=== PATIENT | male | born 1975 | race Caucasian/White ===

== ENCOUNTER 2020-07-16 06:56 | Outpatient (CLI) | payer BC, SELFPAY ==
[2020-07-16 07:27] VITALS: BMI 27.7
--- NOTE | 2020-07-16 07:27 | NMCV_ITS ---
NM pablo perf SPECT r/s* [id number] Neftali Thompson Age: 44 Gender: M : 1975 Exam Date: 07/16/2020 08:05 Ordering Phys: Ana Cabello APN Technologist: HITESH Mehta Exam Location: [facility] Indications: CHEST PAIN STRESS TEST Please see separate stress test report in [facility] for full findings IMAGE PROTOCOL Rest/Stress 1 Lexiscan Day Radiopharmaceutical Dose (mCi) Administration Site Administered by Rest: Tc-99m 10.8 IV HITESH Salcido Sestamibi Stress:Tc-99m 32.9 IV HITESH Salcido Sestamibi Rest: 16-Jul-2020 60 Discovery 630 Stress: 16-Jul-2020 30 Discovery 630 0.4mg Lexiscan. Images obtained in supine and prone position. SPECT RESULTS Technical Quality: Excellent Raw Data Analysis: Normal Image Corrections: No attenuation or motion correction applied Summed Stress Score: 0 Summed Rest Score: 0 Summed Difference Score: 0 PERFUSION FINDINGS SPECT images demonstrate homogeneous tracer distribution throughout the myocardium. FUNCTIONAL RESULTS (calculated via Gated SPECT) Stress Image LV EF (%): 56 Stress EDV (mL):127 TID: 0.99 Stress ESV (mL):56 FUNCTIONAL FINDINGS: The left ventricle is normal in size. Transient Ischemia Dilatation of 0.99. There is normal left ventricular systolic function. The left ventricular ejection fraction is normal with a value of 56%. There is normal left ventricular wall thickening. Normal end-diastolic and end-systolic volumes. IMPRESSIONS 1. Myocardial perfusion imaging is normal. 2. Overall left ventricular systolic function is normal without regional wall motion abnormalities. 3. The left ventricular ejection fraction is normal with a value of 56%. 4. This study suggests a low likelihood of angiographically significant coronary artery disease. Roxana Mora MD (Electronically Signed) Final Date: 16 July 2020 17:20 S
--- NOTE | 2020-07-16 07:27 | ECG_ITS ---
[facility] Test Date: 2020-07-16 Pat Name: Neftali Thompson Department: Room: Gender: Male Strategic Partnership Manager: Lindaariela Hatch : 1975 Requested By: Ana Bass Order Number: [id number] Ebonie MD: Roxana Mora M.D. Interpretive Statements NAME OF STUDY: LEXISCAN SESTAMIBI STRESS TEST INDICATION: Chest Pain PROCEDURE: At the baseline, the blood pressure was 134/100 mmHg, oxygen saturation 96% with a heart rate of 69 bpm. The electrocardiogram showed normal sinus rhythm, normal axis with nonspecific T wave inversion. The Lexiscan was infused over a period of 20 seconds. A total of 0.4 milligrams of Lexiscan was infused. The stress phase was continued for a total of 5 minutes. Heart rate at the end of the stress phase was 85 bpm, oxygen saturation 95% with a blood pressure of 140/102 mmHg. The EKG at the peak infusion revealed no significant ST-T wave changes. Sestamibi was injected 20 seconds after the Lexiscan infusion. Blood pressure at the end of the recovery phase was 143/96 mmHg, oxygen saturation 95% with a heart rate of 84 beats per minute. CONCLUSION: 1. No significant EKG changes with the LexiScan infusion. 2. No LexiScan induced chest pain or cardiac arrhythmia. 3. Normal blood pressure and heart rate response. 4. Sestamibi/sestamibi perfusion scan pending; see separate report. Electronically Signed On 07-16-2020 17:25:12 DRY MAN by Roxana Mora M.D. [id number]
[2020-07-16] MEDS: regadenoson 0.4 Mg/5 ml Syringe IVP (08:53)
[2020-07-16 08:54] VITALS: BP 145/100; PULSE 84
== END 2020-07-16 06:57 | disposition home or self-care (01) ==
LOC: CDL 07:05
PROVIDERS: PCP Family Medicine; Visit Provider Nurse Practitioner
DX: R07.9 Chest pain, unspecified (principal)
CPT/HCPCS: 78452; 93017; A9500; J2785

== ENCOUNTER → 2020-11-04 14:49 | Outpatient (BNVA) | payer BC, SELFPAY | PROVIDERS: PCP Family Medicine; Referring Provider Nurse Practitioner Family; Visit Provider Podiatrist Foot & Ankle Surgery | DX: S99.911A Unspecified injury of right ankle, initial encounter (principal); X58.XXXA Exposure to other specified factors, initial encounter | CPT/HCPCS: 73610; 73630 ==

== ENCOUNTER 2020-11-04 15:36 | Outpatient (CLI) | payer BC, SELFPAY | END 2020-11-04 15:37 | disposition home or self-care (01) | LOC: SPT 15:37 | PROVIDERS: PCP Family Medicine; Visit Provider Podiatrist Foot & Ankle Surgery | DX: Z46.89 Encounter for fitting and adjustment of other specified devices (principal); M76.821 Posterior tibial tendinitis, right leg | CPT/HCPCS: 97760; L1902 ==

== ENCOUNTER 2023-02-10 06:23 | Outpatient (CLI) | payer BC, SELFPAY ==
--- NOTE | 2023-02-10 06:31 | US_ITS ---
WS: [id number] RIGHT UPPER QUADRANT ULTRASOUND HISTORY: ALCOHOL CONSUMPTION ELEVATED LIVER ENZYMES COMPARISON: 07/24/2018 Liver: 17.0 cm in length. Mild hepatic steatosis. Liver is top normal size. Portal Vein: Normal hepatopetal flow with monophasic waveform. Gallbladder: Normally distended gallbladder with no stones or wall thickening. CBD: 0.5 cm Pancreas: Portions of the head and tail are obscured. The body is negative. Right kidney: 11.8 cm in length. Normal size and echogenicity. No hydronephrosis or mass. Aorta and IVC: Unremarkable abdominal aorta and IVC. No ascites. US/US abdomen limited [id number] IMPRESSION: 1. Normal gallbladder. 2. Liver is top normal size with mild hepatic steatosis.
== END 2023-02-10 06:24 | disposition home or self-care (01) ==
LOC: RAD 06:25
PROVIDERS: PCP Family Medicine; Visit Provider Nurse Practitioner Family
DX: R74.8 Abnormal levels of other serum enzymes (principal); F10.10 Alcohol abuse, uncomplicated; K76.0 Fatty (change of) liver, not elsewhere classified
CPT/HCPCS: 76705

== ENCOUNTER 2023-07-24 10:38 | Outpatient (CLI) | payer BC, SELFPAY ==
--- NOTE | 2023-07-24 12:51 | XRR_ITS ---
PROCEDURE INFORMATION: Exam: XR Right Ankle Exam date and time: 07/24/2023 12:53 PM Age: 48 years old Clinical indication: Injury or trauma; Fall; Sprain or strain; Right; Injury details: Fell in hole and hurt ankle 4 months ago; Additional info: Pain in right ankle TECHNIQUE: Imaging protocol: Radiologic exam of the right ankle. Views: 3 or more views. COMPARISON: CR XR ankle RT min 3V* [id number] 11/04/2020 2:56 PM FINDINGS: Bones/joints: No acute fracture or dislocation identified. Minimal linear sclerosis in the posteroinferior calcaneus, unchanged. Soft tissues: No acute soft tissue abnormality identified. XR/XR ankle RT min 3V* [id number] IMPRESSION: No acute findings.
== END 2023-07-24 10:39 | disposition home or self-care (01) ==
PROVIDERS: PCP Family Medicine; Visit Provider Nurse Practitioner Family
DX: M25.571 Pain in right ankle and joints of right foot (principal); W17.2XXA Fall into hole, initial encounter
CPT/HCPCS: 73610

== ENCOUNTER 2023-11-23 03:26 | Emergency (ER) | payer BC, SELFPAY ==
[2023-11-23 03:48] VITALS: BP 154/82; PULSE 104; RESP 18; TEMP 36.6; O2SAT 94; BMI 28.8
[2023-11-23 03:53] VITALS: BP 149/85; O2SAT 92
--- NOTE | 2023-11-23 04:48 | W.ED.SKABFB ---
HPI - Skin/Abscess/Foreign Bdy General: Chief complaint: Skin/Abscess/Foreign Body Stated complaint: Rash,Sore throat/Swelling, Time Seen by Provider: 11/23/23 03:57 History of Present Illness: 48-year-old male presents emergency department with complaints of hives on his trunk and arms that started Monday. He states he is unsure what he was exposed to. He states he did see urgent care and they provided him with Decadron as well as a prescription for prednisone. He states he was advised to take Benadryl and Zyrtec intermittently. He states the hives initially resolved but then they have returned. He states he felt like the hives may have caused his throat to become itchy. He denies difficulty with phonation or swallowing. He denies wheezing or shortness of breath. He states that the hives are extremely itchy and he noticed them more once he goes to bed. He does not appear to have any insect bite ash. Associated symptoms: Deny nausea or vomiting Review of Systems General: Reports: 10 or more systems reviewed and unremarkable except in HPI and below Resp: Denies: dyspnea or wheezing GI: Denies: abdominal pain, nausea or vomiting Skin/Breast: Reports: rash, pruritus and other (Urticaria) [facility] ED PFSH: Medical History Lower urinary tract symptoms (LUTS) Hypertension History of COVID-19 Varicose veins of both lower extremities with pain Hypertension Family History (Updated 11/04/20 @ 15:05 by Marla Cardenas LPN) Father Hypertension Parkinson disease Diabetes Cancer Heart attack Mother Diabetes Hypertension Social History (Updated 11/19/21 @ 15:02 by Karla Palafox LPN) Smoking and tobacco/nicotine status: never used tobacco/nicotine Alcohol intake: current Alcohol intake frequency: few times a month Alcohol type: beer Substance/Drug Use: never Marital status: Current occupational status: employed Do you think of yourself as: Straight/Heterosexual Physical Exam Narrative: EXAM NARRATIVE: Constitutional: the patient appears well nourished and of normal development. Vital signs as documented. No acute distress at present. Alert and oriented-to person, place, time and situation. Head, eyes, ears, nose, mouth, throat: Normocephalic, atraumatic. Pupils-equal, round, reactive to light. No scleral icterus. Normal-appearing external ears. Normal appearing nasal turbinates, no drainage. No obvious oral lesions, posterior oropharynx without erythema or exudates. There is no edema or swelling of the uvula. Neck: Supple, trachea is midline, no lymphadenopathy, no jugular venous distension. Lungs: clear to auscultation to all lung mahoney. Symmetrical rise and fall of chest, no obvious signs of increased work of breathing at present. Cardiac: Regular rate and rhythm, positive S1, S2. No murmurs, rubs or gallops that I can appreciate Abdomen: Soft, non-tender to palpation, normal active bowel sounds to all quadrants. No palpable masses, no organomegaly and abdominal bruits. Extremities: 2+ pulses in the upper extremities that are equal bilaterally, 2+ pulses in the lower extremities that are equal bilaterally. Non-edematous. Moves all extremities well, sensation to all extremities are noted. Skin: Warm, dry, intact. Patient does have large areas of urticaria to the abdomen and back. The area is reddened. Course Vital Signs: Vital signs: Vital Signs Temperature 97.9 F 11/23/23 03:48 Pulse Rate 104 H 11/23/23 03:48 Respiratory Rate 18 11/23/23 03:48 Blood Pressure 149/85 11/23/23 03:53 Pulse Oximetry 92 11/23/23 03:53 Oxygen Delivery Me thod Room Air 11/23/23 03:48 MDM - Skin/Abscess/Foreign Bdy Medicial Decision Making Physical exam completed and documented, I did review the patient's previous medical records. I will provide him Solu-Medrol and a prescription of hydroxyzine. Medical Records I reviewed the patient's medical records. No radiology studies performed this visit Discharge Plan Discharge Patient Disposition: Home Clinical Impression: Urticaria, Pruritus Condition: Stable Prescriptions: New Zyrtec 10 mg capsule 10 mg PO BID PRN (Reason: Urticaria) Qty: 20 0RF hydroxyzine HCl 50 mg tablet 50 mg PO Q6H PRN (Reason: Itching/hives) Qty: 30 0RF No Action lisinopril 20 mg tablet 20 mg PO DAILY metoprolol succinate 25 mg tablet extended release 24 hr 25 mg PO DAILY cholecalciferol (vitamin D3) 25 mcg (1,000 unit) capsule 25 mcg PO DAILY (DME) right ankle supinator See Rx Instructions .Route .MEDSUPPLY Qty: 1 0RF Rx Instructions: As directed fluoxetine [Prozac] 20 mg capsule 20 mg PO DAILY prednisone 20 mg tablet 40 mg PO DAILY 5 Days Qty: 10 0RF Discharge Orders: Discharge ED (Routine); Ordered 11/23/23 Ordered By: Enrique Cramer Referrals: Lavern Altamirano MD [Primary Care Provider] - Discharge Diet: Usual diet Discharge Activity: Resume usual activity Patient Instructions: Opioid Safety, Pain Management Activity Restrictions/Additional Instructions: Activity Restrictions/Additional Instructions: Thank you for choosing [facility] for your healthcare needs today. Please realize that you were seen in the Emergency Department and that we are providing you with an emergency medical screening exam and this may not be a complete and all inclusive of all the testing and or medical work-up that you may need to determine your ailment or severity of your illness. It is very important that you follow-up as instructed with your Primary care provider or Specialist for additional evaluation and to discuss your medical treatment plan. You may return to the Emergency Department should you have concerns or if your condition changes or worsens in any way. Continue to take your prednisone as prescribed. A cool shower or bath may also help relieve your itching and resolve your hives. You may also apply a cold pack or cold compress to the area to relieve itching. 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
[2023-11-23] MEDS: methylPREDNISolone sod succ 125 mg/2 mL INJ IM (04:59)
[2023-11-23 05:14] VITALS: BP 149/85; PULSE 104; RESP 18; TEMP 36.6; O2SAT 92
== END 2023-11-23 05:16 | disposition home or self-care (01) ==
PROVIDERS: Emergency Provider Internal Medicine; PCP Family Medicine
DX: L50.9 Urticaria, unspecified (principal); L29.9 Pruritus, unspecified; I10 Essential (primary) hypertension
CPT/HCPCS: 96372; 99284; J2930